=== PATIENT | male | born 1990 | race Caucasian/White ===

== ENCOUNTER 2025-07-06 17:51 | Emergency (ER) | payer BC ==
[~2025-07-06] VITALS: Ht 172.7 cm; Wt 72.6 kg
[2025-07-06] MEDS: IV NORMAL SALINE 1000 ML BAG IV ONE (18:30)
[2025-07-06] MEDS ORDERED: LORAZEPAM 2 MG/1 ML VIAL ONE ×2 (18:36→20:58)
[2025-07-06] MEDS: LORAZEPAM 2 MG/1 ML VIAL IV ONE ×2 (18:36→21:01)
[2025-07-06 18:52] LABS: PLATELET COUNT (AUTO) 274 K/uL (152-348); RED BLOOD CELL COUNT(AUTO) 4.88 MIL/uL (4.06-5.63); RED CELL DISTRIBUTION WIDTH 13.0 % (12.1-16.2); WHITE BLOOD COUNT (AUTO) 9.6 K/uL (3.6-10.2)
[2025-07-06 19:01] LABS: CREATININE 1.0 mg/dL (0.6-1.3); SODIUM SERUM 137 mmol/L (136-145); UREA NITROGEN, BLOOD 11 mg/dL (7-18)
[2025-07-06 19:07] LABS: ASPARTATE AMINOTRANSFERASE 37 U/L (15-37); TOTAL PROTEIN, SERUM 7.8 g/dL (6.4-8.2)
[2025-07-06 19:30] VITALS: BP 124/76
[2025-07-06] MEDS ORDERED: DIAZ5TAB4 PO (21:14)
[2025-07-06 21:15] VITALS: BP 134/80; O2SAT 95
== END 2025-07-06 21:39 | disposition home or self-care (01) ==
LOC: ER 18:04
DX: R00.2 Palpitations (principal); F41.9 Anxiety disorder, unspecified; F14.10 Cocaine abuse, uncomplicated; F17.210 Nicotine dependence, cigarettes, uncomplicated
CPT/HCPCS: 99285; 96374; 71045; 96361; 99406; 80076; 80048; 83880; 85025; 85379; 84484 ×2; 36415; 93005; 96376; J2060 ×2; J7040; A4606; A4663